=== PATIENT | female | born 1935 | race Caucasian/White ===

== ENCOUNTER 2021-06-17 14:11 | Inpatient (IN) | payer BC ==
[~2021-06-17] VITALS: Ht 167.6 cm; Wt 57.6 kg
--- NOTE | 2021-06-17 14:15 | NUR ---
AT BEDSIDE FOR EVAL.
--- NOTE | 2021-06-17 14:18 | NUR ---
CODE STROKE ACTIVATED.
--- NOTE | 2021-06-17 14:19 | NUR ---
PT IS WHEELED TO CT SCAN VIA [facility].
--- NOTE | 2021-06-17 14:20 | NUR ---
[id number] FROM SN[facility] FOR SLURRED SPEECH, LT SIDE DEFICIT, LAST WELL KNOWN 9AM PER EMS, BG 159. THE PATIENT IS ALERT AND ORIENTED X1. DENIES PAIN. IN ROOM AIR AND DENIES SOB. REPIRATION REGULAR AND UNLABORED. WILL CONTINUE TO MONITOR THE PATIENT.
--- NOTE | 2021-06-17 14:32 | NUR ---
PT IS BACK FROM THE CT SCAN.
[2021-06-17] MEDS ORDERED: IOHEXOL-350 100 ML VIAL IV ONE (14:41)
[2021-06-17] MEDS ORDERED: CT SWABBABLE VALVE TRANS SET 1 EA INFUS.SET MC ONE (14:41)
[2021-06-17] MEDS ORDERED: IV NS 0.9% 250 ML IV ONE (14:41)
--- NOTE | 2021-06-17 14:46 | NUR ---
PT IS WHEELED TO CT SCAN VIA ALS PROTOCOL.
[2021-06-17 14:54] LABS: BASOPHILS # (AUTO) 0.1 K/uL (0.0-0.2); BASOPHILS % (AUTO) 0.7 % (0.0-2.0); EOSINOPHILS % (AUTO) 1.2 % (0.0-6.0); HEMATOCRIT 35 % (33-45); HEMOGLOBIN 11.7 g/dL (11.5-14.8); LYMPHOCYTES # (AUTO) 2.1 K/uL (0.8-4.8); LYMPHOCYTES % (AUTO) 24.8 % (20.0-44.0); MEAN CORPUSCULAR HGB CONC 33 g/dl (31.0-36.0); MEAN CORPUSCULAR VOLUME 92 fL (82-100); MONOCYTES # (AUTO) 0.8 K/uL (0.1-1.30); MONOCYTES % (AUTO) 9.2 % (2.0-12.0); NEUTROPHILS # (AUTO) 5.5 K/uL (1.8-8.9); NEUTROPHILS % (AUTO) 64.1 % (43.0-81.0); PLATELET COUNT (AUTO) 390 K/uL (150-450); WHITE BLOOD COUNT (AUTO) 8.6 K/uL (4.3-11.0)
[2021-06-17 14:58] LABS: CALCIUM, SERUM 8.9 mg/dL (8.5-10.1); CARBON DIOXIDE 29 mmol/L (21-32); CHLORIDE 100 mmol/L (98-107); CREATININE 0.6 mg/dL (0.6-1.3); GLUCOSE 76 mg/dL (74-106); POTASSIUM 4.1 mmol/L (3.5-5.1); SODIUM SERUM 138 mmol/L (136-145); UREA NITROGEN, BLOOD 10 mg/dL (7-18)
--- NOTE | 2021-06-17 14:59 | NUR ---
THE PATIENT IS BACK FROM CT
[2021-06-17] MEDS ORDERED: CLOP75TA15 PO (15:22)
[2021-06-17] MEDS ORDERED: CHOL100062 PO (15:22)
[2021-06-17] MEDS ORDERED: CRAN500T PO (15:22)
[2021-06-17] MEDS ORDERED: ONDA4TAB5 PO (15:22)
[2021-06-17] MEDS ORDERED: CYCL5TAB PO (15:22)
[2021-06-17] MEDS ORDERED: ATOR40TA PO (15:22)
[2021-06-17] MEDS ORDERED: LOSA50TA39 PO (15:22)
[2021-06-17] MEDS ORDERED: ASPI-1420 PO (15:22)
[2021-06-17] MEDS ORDERED: ASCO-352 PO (15:22)
[2021-06-17] MEDS ORDERED: ACET-868 PO (15:22)
[2021-06-17] MEDS ORDERED: AMLO-212 PO (15:22)
[2021-06-17] MEDS ORDERED: ESOM40CA52 PO (15:22)
[2021-06-17] MEDS ORDERED: FLUO20CA42 PO (15:22)
[2021-06-17] MEDS ORDERED: MAGN400T26 PO (15:22)
[2021-06-17] MEDS ORDERED: DIVA250T47 PO (15:22)
[2021-06-17] MEDS ORDERED: GLUC1CAP PO (15:22)
--- NOTE | 2021-06-17 16:13 | NUR ---
COVID SWAB DONE AND SENT TO THE LAB
--- NOTE | 2021-06-17 16:20 | NUR ---
MOVE SHEET SUBMITTED.
[2021-06-17] MEDS ORDERED: ACETAMINOPHEN 325 MG TABLET PO PRN (18:00)
[2021-06-17] MEDS: BLOOD SUGAR DIAGNOSTIC 1 EACH STRIP IN SCH (19:46)
--- NOTE | 2021-06-17 20:32 | NUR ---
SPOKE TO PT'S SON REGARDING PLAN OF CARE. AWARE PT WILL BE ADMITTED.
--- NOTE | 2021-06-17 21:04 | NUR ---
ROOM 105 WAS GIVEN
--- NOTE | 2021-06-17 21:55 | NUR ---
RN NOTES RECEIVED ER ADMISSION REPORT FROM ANNA CHOI. ALL PERTINENT ADMISSION INFO REGARDING PT NOTED. WILL WAIT FOR PT TO BE TRANSFERRED TO UNIT AND ADDRESS NEEDS ACCORDINGLY. RESIDENTIAL ADVISOR MADE AWARE.
--- NOTE | 2021-06-17 21:58 | NUR ---
REPORT GIVEN TO CHUNG CASTILLO FOR GENARO
[2021-06-17] MEDS ORDERED: CYCLOBENZAPRINE 10 MG TABLET PO PRN (22:00)
[2021-06-17] MEDS ORDERED: BLOOD SUGAR DIAGNOSTIC 1 EACH STRIP IN SCH (22:00)
[2021-06-17] MEDS ORDERED: SIMVASTATIN 40 MG TABLET PO SCH (22:00)
[2021-06-17 22:09] LABS: ALBUMIN 3.2 g/dL (3.4-5.0); BILIRUBIN,TOTAL 0.5 mg/dL (0.2-1.0); CALCIUM, SERUM 9.1 mg/dL (8.5-10.1); CREATININE 0.6 mg/dL (0.6-1.3); POTASSIUM 3.5 mmol/L (3.5-5.1); TOTAL PROTEIN, SERUM 6.8 g/dL (6.4-8.2)
[2021-06-17 22:45] VITALS: BP 165/82
--- NOTE | 2021-06-17 22:50 | NUR ---
RN NOTES RECEIVED PT FROM ER VIA [facility] ACCOMPANIED BY 2 ER STAFF AND TRANSFERRED TO BED VIA 2-3 PERSON ASSIST. PT IS A/OX1-2;ON ROOM AIR WITH RESPIRATIONS EVEN AND UNLABORED. COMPREHENSIVE PHYSICAL ASSESSMENT AND PATIENT CARE DONE. CALL LIGHT WITHIN REACH, SAFETY MEASURES AND ISOLATION PRECAUTION IN PLACE, WILL CONTINUE MONITOR AND ASSESS THROUGHOUT THE SHIFT. WILL CARRY OUT MD ORDERS ACCORDINGLY. PROCESSING ENGINEER MADE AWARE.
[2021-06-17 23:29] LABS: THYROID STIMULATING HORMONE 0.967 uIU/mL (0.358-3.74)
[2021-06-18] VITALS: BP 146/75
[2021-06-18] MEDS: BLOOD SUGAR DIAGNOSTIC 1 EACH STRIP IN SCH ×5 (00:01→23:28)
[2021-06-18 04:00] VITALS: BP 147/71
--- NOTE | 2021-06-18 06:56 | NUR ---
RN CLOSING NOTE: PATIENT REMAINS IN ROOM IN NO SIGNS OF RESPIRATORY DISTRESS, PATIENT STILL ON ROOM AIR;TOLERATING WELL SATURATING @ >95% SP02. SAFETY MEASURES IMPLEMENTED, BED IN LOWEST POSITION, LOCKED, SIDE RAILS UP, CALL LIGHT WITHIN REACH. ALL NEEDS AND ORDERS ADDRESSED DURING THE SHIFT. IV ACCESS MAINTAINED INTACT, SECURED AND FLUSHING WELL. ALL DUE MEDS GIVEN ORDERED & SCHEDULED ; PATIENT TOLERATED WELL. PATIENT KEPT CLEAN AND COMFORTABLE WITHIN THE SHIFT. PATIENT ENDORSED TO INCOMING SHIFT RN WITH STABLE VITAL SIGN AND FOR CONTINUITY OF CARE.
--- NOTE | 2021-06-18 07:09 | NUR ---
CUSTOMER DEVELOPMENT REPRESENTATIVE OPENING NOTES RECEIVED PATIENT RESTING IN BED. PATIENT IS A/O X2. PATIENT IS BREATHING EVENLY AND NONLABORED ON ROOM AIR. NO SIGNS OF DISTRESS NOTED, NO SIGNS OF PAIN OR DISCOMFORT AT THIS TIME. PATIENT IS ON TELE MONITOR SHOWING SR. PATIENT HAS IV ACCESS TO LFA # 18 AND RAC # 18 BOTH PATENT AND INTACT. NEUROCHECKS BEING PERFORMED, SAFETY MEASURES IN PLACE BED LOW LOCKED AND CALL LIGHT WITHIN REACH. WILL CONTINUE TO MONITOR
[2021-06-18 07:26] LABS: BASOPHILS % (AUTO) 0.7 % (0.0-2.0); EOSINOPHILS % (AUTO) 2.9 % (0.0-6.0); HEMATOCRIT 37 % (33-45); HEMOGLOBIN 12.2 g/dL (11.5-14.8); LYMPHOCYTES # (AUTO) 1.3 K/uL (0.8-4.8); LYMPHOCYTES % (AUTO) 19.6 % (20.0-44.0); MEAN CORPUSCULAR HGB CONC 34 g/dl (31.0-36.0); MEAN CORPUSCULAR VOLUME 93 fL (82-100); MONOCYTES # (AUTO) 0.7 K/uL (0.1-1.30); MONOCYTES % (AUTO) 10.8 % (2.0-12.0); NEUTROPHILS # (AUTO) 4.3 K/uL (1.8-8.9); PLATELET COUNT (AUTO) 373 K/uL (150-450); RED BLOOD CELL COUNT(AUTO) 3.94 MIL/uL (4.0-5.2); WHITE BLOOD COUNT (AUTO) 6.6 K/uL (4.3-11.0)
[2021-06-18 07:33] LABS: CALCIUM, SERUM 9.1 mg/dL (8.5-10.1); CARBON DIOXIDE 26 mmol/L (21-32); CHLORIDE 102 mmol/L (98-107); CREATININE 0.6 mg/dL (0.6-1.3); GLUCOSE 110 mg/dL (74-106); POTASSIUM 3.6 mmol/L (3.5-5.1); SODIUM SERUM 138 mmol/L (136-145); UREA NITROGEN, BLOOD 12 mg/dL (7-18)
[2021-06-18 08:00] VITALS: BP 150/75
[2021-06-18] MEDS: PANTOPRAZOLE 40 MG TABLET.DR PO SCH (08:25)
[2021-06-18] MEDS: CLOPIDOGREL BISULFATE 75 MG TABLET PO SCH (08:39)
[2021-06-18] MEDS: MAGNESIUM OXIDE 400 MG TABLET PO SCH (08:39)
[2021-06-18] MEDS: AMLODIPINE BESYLATE 5 MG TABLET PO SCH (08:39)
[2021-06-18] MEDS: LOSARTAN POTASSIUM 50 MG TABLET PO SCH (08:39)
[2021-06-18] MEDS: CHOLECALCIFEROL 1,000 UNIT TABLET (VIT D3) PO SCH (08:39)
[2021-06-18] MEDS: ASCORBIC ACID 500 MG TABLET PO SCH (08:39)
[2021-06-18] MEDS: FLUOXETINE HCL 20 MG CAPSULE PO SCH (08:43)
[2021-06-18] MEDS ORDERED: ASPIRIN EC 81 MG TABLET.DR PO SCH (09:00)
[2021-06-18] MEDS ORDERED: ASPIRIN EC 325 MG TABLET.DR PO SCH (09:00)
[2021-06-18 10:27] LABS: CHOLESTEROL 134 mg/dL (<200); HDL CHOLESTEROL 74 mg/dL (40-60); LDL 47 mg/dL (0-99); TRIGLYCERIDES 32 mg/dL (30-150)
[2021-06-18 12:09] VITALS: BP 138/60
[2021-06-18 16:14] VITALS: BP 131/69
--- NOTE | 2021-06-18 16:18 | NUR ---
SS consult requested for Code Stroke. JEANNIE spoke with RN, Jojo and no DC order for today. JEANNIE will follow up with pt. at a later time.
[2021-06-18] MEDS: ATORVASTATIN 40 MG TABLET PO SCH (17:03)
[2021-06-18] MEDS: DIVALPROEX SODIUM 250 MG TABLET.DR PO SCH (17:03)
--- NOTE | 2021-06-18 18:27 | NUR ---
GAMBLING FLOOR SUPERVISOR CLOSING NOTES PATIENT RESTING IN BED. PATIENT IS A/O X2. PATIENT IS BREATHING EVENLY AND NONLABORED ON ROOM AIR. NO SIGNS OF DISTRESS NOTED, NO SIGNS OF PAIN OR DISCOMFORT AT THIS TIME. PATIENT IS ON TELE MONITOR SHOWING SR. PATIENT HAS IV ACCESS TO LFA # 18 AND RAC # 18 BOTH PATENT AND INTACT. NEUROCHECKS PERFORMED THROUGHOUT SHIFT. ALL MEDICATIONS GIVEN ORDERED. SAFETY MEASURES IN PLACE BED LOW LOCKED AND CALL LIGHT WITHIN REACH. WILL ENDORSE TO ONCOMING SHIFT
--- NOTE | 2021-06-18 19:00 | NUR ---
RN NOTE RECEIVED PATIENT IN BED, AO X 1-2, IN NO S/SX OF ACUTE DISTRESS AT THIS TIME. SATURATION AT 95% ON ROOM AIR, SR ON THE MONITOR, HR IS 68. NOTED IV SITE AT LFA 18G, AND RAC 18G, ALL HUBS PATENT AND FLUSHING WELL, NO S/S OF INFECTION OR INFILTRATION. NEUROCHECKS PERFORMED PER PROTOCOL. SAFETY MEASURES IMPLEMENTED. PATIENT BED ALARM IS ON. HEAD OF BED ELEVATED. BED IS LOCKED, IN LOWEST POSITION AND SIDE RAILS UP. CALL LIGHT WITHIN REACH OF THE PATIENT. WILL CONTINUE TO MONITOR AND REASSESS FOR ANY CHANGES.
[2021-06-18 20:00] VITALS: BP 109/54
[2021-06-19] VITALS: BP 134/74
[2021-06-19 04:00] VITALS: BP 122/69
[2021-06-19] MEDS: BLOOD SUGAR DIAGNOSTIC 1 EACH STRIP IN SCH ×3 (05:28→17:05)
--- NOTE | 2021-06-19 07:30 | NUR ---
LAUNDERETTE ATTENDANT AM NOTE RECEIVED PATIENT IN BED, AO X 1-2, IN NO S/SX OF ACUTE DISTRESS AT THIS TIME. ON ROOM AIR, SATURATION AT 100%, SR ON THE MONITOR, HR IS 74. NOTED IV SITE AT LFA 18G, AND RAC 18G, ALL HUBS PATENT AND FLUSHING WELL, BOTH SITES CLEAR. NEUROCHECKS PERFORMED PER PROTOCOL. SAFETY MEASURES IMPLEMENTED. ON DIAPERS. MECH SOFT DIET. CRUSH MEDS. PATIENT BED ALARM IS ON. HEAD OF BED ELEVATED. BED IS LOCKED, IN LOWEST POSITION AND SIDE RAILS UP. CALL LIGHT WITHIN REACH OF THE PATIENT. WILL CONTINUE TO MONITOR AND REASSESS FOR ANY CHANGES.
[2021-06-19 08:00] VITALS: BP_SYST 123; BP_SYST 137; BP_DIAS 57; BP_DIAS 77
[2021-06-19] MEDS: PANTOPRAZOLE 40 MG TABLET.DR PO SCH (08:09)
[2021-06-19] MEDS: LOSARTAN POTASSIUM 50 MG TABLET PO SCH (08:31)
[2021-06-19] MEDS: MAGNESIUM OXIDE 400 MG TABLET PO SCH (08:32)
[2021-06-19] MEDS: ASCORBIC ACID 500 MG TABLET PO SCH (08:32)
[2021-06-19] MEDS: CLOPIDOGREL BISULFATE 75 MG TABLET PO SCH (08:32)
[2021-06-19] MEDS: AMLODIPINE BESYLATE 5 MG TABLET PO SCH (08:32)
[2021-06-19] MEDS: CHOLECALCIFEROL 1,000 UNIT TABLET (VIT D3) PO SCH (08:32)
[2021-06-19] MEDS: FLUOXETINE HCL 20 MG CAPSULE PO SCH (08:34)
[2021-06-19] MEDS: ASPIRIN EC 81 MG TABLET.DR PO SCH (08:54)
[2021-06-19] MEDS ORDERED: ASPIRIN EC 325 MG TABLET.DR PO SCH (09:00)
--- NOTE | 2021-06-19 09:30 | NUR ---
RN NOTES DUE MEDS GIVEN
--- NOTE | 2021-06-19 10:04 | NUR ---
RN NOTES PATIENT PULLED OUT HER LEFT FA IV. WILL RESTART A NEW ONE.
[2021-06-19 12:00] VITALS: BP 129/76
--- NOTE | 2021-06-19 15:56 | NUR ---
SS Consult: SS consult for CVA. Pt. Is an 85-year-old female. Pt. demonstrates adequate insight to the reason for hospitalization. Per pt., she was brought to hospital due to not feeling well. Pt. was oriented x2, alert, and cooperative. During interview, pt. was capable of following directions, made appropriate eye-contact, and appeared well-groomed. SW explored pt.s Hx of mental health and substance abuse. Pt. reported no Hx of mental health, SI/HI, denied AH/VH, paranoia or delusions. SW explored pt.s living situation. Per pt., she lives with her Rich [[id number] [place] [address], ]. Per pt., she reports having adequate support at home. Pt. is ambulatory but uses a wheelchair when needed. 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 scored a 3. No need for psych consult. Plan: JEANNIE provided stroke resources and pt. accepted. Once discharge, per pt., she will return to home [[id number] [place] [address], ]. Resources Provided: Stroke Empowerment Package.
[2021-06-19 16:00] VITALS: BP_SYST 122; BP_SYST 133; BP_DIAS 62; BP_DIAS 63
[2021-06-19] MEDS: DIVALPROEX SODIUM 250 MG TABLET.DR PO SCH (17:05)
[2021-06-19] MEDS: ATORVASTATIN 40 MG TABLET PO SCH (17:05)
--- NOTE | 2021-06-19 18:25 | NUR ---
TIRE SPOTTER CLOSING NOTE PATIENT IN BED, AO X 1-2, RESTING, IN NO S/SX OF ACUTE DISTRESS AT THIS TIME. ON ROOM AIR, SATURATION AT 100%, SR ON THE MONITOR, HR IS 77. RT HAND G22 FLUSHES WELL, SITE CLEAR. NEUROCHECKS PERFORMED PER PROTOCOL. SAFETY MEASURES IMPLEMENTED. ON DIAPERS. MECH SOFT DIET. CRUSH MEDS. PATIENT BED ALARM IS ON. HEAD OF BED ELEVATED. BED IS LOCKED, IN LOWEST POSITION AND SIDE RAILS UP. CALL LIGHT WITHIN REACH OF THE PATIENT. ALL NEEDS MET. PM CARE DONE EARLIER. WILL ENDORSE TO NEXT SHIFT FOR GENARO.
--- NOTE | 2021-06-19 19:50 | NUR ---
RN OPENING NOTES PATIENT IN BED, PATIENT ON ROOM AIR WITH NO SIGNS OF LABORED BREATHING/DISTRESS. TELE MONITOR READS SINUS RHYTHM. RIGHT AC 18 GAUGE IV, LEFT FOREARM 18 GAUGE. PATENT WITH NO SIGNS OF INFILTRATION. NO DISTRESS NOTED AT THIS TIME. BED LOCKED AND IN LOWEST POSITION, CALL LIGHT WITHIN REACH, SIDE RAILS UP X2. BED ALARM ON. WILL CONTINUE TO MONITOR.
[2021-06-19 21:28] VITALS: BP 137/57
[2021-06-20] VITALS: BP 147/62
[2021-06-20] MEDS: BLOOD SUGAR DIAGNOSTIC 1 EACH STRIP IN SCH ×3 (00:42→12:20)
[2021-06-20 04:00] VITALS: BP 139/69
--- NOTE | 2021-06-20 07:30 | NUR ---
RN OPENING NOTES RECEIVED PATIENT IN BED, AWAKE AND A/O X2-3. ON ROOM AIR TOLERATING WELL. TELE MONITOR READS SINUS RHYTHM. WITH NO COMPLAINTS OF PAIN OR DISCOMFORT AT THIS TIME. WITH IV ACCESS AT RIGHT HAND G22, SALINE LOCKED, INTACT AND PATENT. NO DISTRESS NOTED AT THIS TIME. BED LOCKED AND IN LOWEST POSITION, CALL LIGHT WITHIN REACH, SIDE RAILS UP X2. BED ALARM ON. WILL CONTINUE TO MONITOR.
[2021-06-20 08:00] VITALS: BP 140/74
[2021-06-20] MEDS: LOSARTAN POTASSIUM 50 MG TABLET PO SCH (08:36)
[2021-06-20] MEDS: CHOLECALCIFEROL 1,000 UNIT TABLET (VIT D3) PO SCH (08:36)
[2021-06-20] MEDS: FLUOXETINE HCL 20 MG CAPSULE PO SCH (08:36)
[2021-06-20] MEDS: PANTOPRAZOLE 40 MG TABLET.DR PO SCH (08:36)
[2021-06-20] MEDS: ASPIRIN EC 81 MG TABLET.DR PO SCH (08:37)
[2021-06-20] MEDS: CLOPIDOGREL BISULFATE 75 MG TABLET PO SCH (08:37)
[2021-06-20] MEDS: AMLODIPINE BESYLATE 5 MG TABLET PO SCH (08:37)
[2021-06-20] MEDS: MAGNESIUM OXIDE 400 MG TABLET PO SCH (08:37)
[2021-06-20] MEDS: ASCORBIC ACID 500 MG TABLET PO SCH (08:37)
--- NOTE | 2021-06-20 10:16 | NUR ---
PER [facility] COVID NEGATIVE PCR.
[2021-06-20 12:00] VITALS: BP 138/81
--- NOTE | 2021-06-20 17:20 | NUR ---
MS KNAPSACK SPRAYER NOTES PATIENT IS FOR DISCHARGE TO ASSISTED LIVING PER DR. LOPEZ'S ORDER. DISCHARGE INSTRUCTION AND EDUCATION PROVIDED TO PATIENT AND EXPLAINED MEDICATIONS AND PRESCRIPTIONS. PATIENT VERBALIZED UNDERSTANDING. ALL BELONGINGS ACCOUNTED FOR. NAME WRIST BAND AND IV LINE REMOVED. NO SKIN ISSUES. PATIENT WAS PICKED UP BY AMBULANCE PERSONNEL IN STABLE CONDITION. GIVEN REPORT AND INFORMED THE FACILITY THAT PATIENT IS COMING BACK. CHARGE NURSE AND MD ARE AWARE OF THE DISCHARGE.
== END 2021-06-20 17:39 | DRG 69 ==
LOC: ER 14:25 → TELE1 21:30 → MEDSG1 06-20 10:17
PROVIDERS: ADMIT Internal Medicine; ATTEND Internal Medicine
DX: G45.9 Transient cerebral ischemic attack, unspecified (principal); I69.354 Hemiplegia and hemiparesis following cerebral infarction affecting left non-dominant side; Z96.642 Presence of left artificial hip joint; I10 Essential (primary) hypertension; E78.5 Hyperlipidemia, unspecified; E11.9 Type 2 diabetes mellitus without complications; R29.701 NIHSS score 1; I25.10 Atherosclerotic heart disease of native coronary artery without angina pectoris; R47.81 Slurred speech; Z20.822 Contact with and (suspected) exposure to COVID-19
CPT/HCPCS: 36415; 70450-TC; 70496-TC; 70498-TC; 70551-TC; 71045-TC; 80048-TC; 80053-TC; 80061-TC; 80164-TC; 82962-TC; 83880; 84443-TC; 84484-TC; 85025-TC; 85652-TC; 85730-TC; 87081-TC; 92526; 92611-TC; 93880-TC; 97112-TC; 97116-TC; 97530-TC; G0378; J3490; J7050; Q9967; U0003